=== PATIENT | male | born 1960 | race Caucasian/White ===

== ENCOUNTER 2017-01-24 01:41 | Day surgery (SDC) | payer OTHER ==
[~2017-01-24] VITALS: Ht 177.8 cm; Wt 116.6 kg
[~2017-01-24 01:41] MED LIST: ALBU8.5H IH; ASCO-182 PO; ASPI-1471 PO; ATOR40TA69 PO; CHLOR25 PO; CHOL100062 PO; DOXA4TAB58 PO; FENO145T PO; LEVO50TA86 PO; MULT-1335 PO; PEN400 PO; RANI-324 PO; SODI650T7 PO; TRAM-420 PO
[2017-01-24 11:45] VITALS: BP 144/73
[2017-01-24] MEDS ORDERED: LIDOCAINE/SOD BICARB 8.4% SYR ID ONE (12:25)
[2017-01-24] MEDS ORDERED: DEXAMETHASONE SOD 4 MG/ML VIAL ONE (12:25)
[2017-01-24] MEDS ORDERED: SUGAMMADEX SOD 200 MG/2 ML SDV ONE (12:25)
[2017-01-24] MEDS ORDERED: ceFAZolin(*) 1 GM VIAL 3 GM in NS(*) 0.9% 100 ML BAG 100 ML IVPB ONE (12:25)
[2017-01-24] MEDS ORDERED: NORMOSOL R SOLN(*) 1000 ML BAG 1,000 ML IV PRN (12:25)
[2017-01-24] MEDS ORDERED: LIDOCAINE MPF 1% 5 ML VIAL ONE (12:25)
[2017-01-24] MEDS ORDERED: ROCURONIUM BROM 10 MG/ML 10 ML ONE (12:25)
[2017-01-24] MEDS ORDERED: PROPOFOL EMUL(*) 10MG/ML 20 ML 20 ML ONE (12:25)
[2017-01-24] MEDS ORDERED: MIDAZOLAM 2 MG/2 ML VIAL IVP PRN (12:25)
[2017-01-24] MEDS ORDERED: ONDANSETRON 4 MG/2 ML VIAL ONE (12:25)
[2017-01-24] MEDS ORDERED: fentaNYL CITR 250 MCG/5 ML AMP ONE (12:26)
[2017-01-24] MEDS ORDERED: BUPIVACAIN 0.25% INJ 50ML VIAL ONE (12:59)
[2017-01-24] MEDS ORDERED: DESFLURANE 240 ML BTL INH ONE (17:32)
[2017-01-24] MEDS ORDERED: fentaNYL CITR 100 MCG/2 ML AMP ONE ×2 (18:18→18:40)
--- NOTE | 2017-01-24 18:35 | RADIOLOGY IMAGING REPORT ---
[place] [facility] [place] NAME: Antony Jimenez : 1960 MR: [id number] V: [id number] EXAM DATE: ORDERING PHYSICIAN: CECY BOBO TECHNOLOGIST: Location: [facility] Patient: Antony Jimenez : 1960 Visit/Account:[id number] Date of Sevice: 01/24/2017 LUMBAR SPINE 1 VIEW INDICATION: L4-5 disc herniation. COMPARISON: None available FINDINGS: Crosstable lateral view the lumbar spine. Postsurgical changes at L5-S1 with by pedicular screws and posterior rods in place without sequelae. The posterior soft tissues of the back to show [address] The superior needle is at the L3-4 disc space. The inferior needle is at the mid L4 level. No other radiopaque foreign body. Lumbar spine is aligned with degenerative changes and no acute abnormality. IMPRESSION: Percutaneous needles are in place as above. Report Dictated By: Quinton Tinoco at 01/24/2017 6:30 PM Report E-Signed By: Quinton Tinoco at 01/24/2017 6:31 PM WSN:[id number]
[2017-01-24] MEDS ORDERED: KETOROLAC 30 MG/ML VIAL ONE (18:45)
[2017-01-24] MEDS ORDERED: DOCU240C84 PO (19:11)
[2017-01-24] MEDS ORDERED: OXYC-865 PO (19:11)
[2017-01-24] MEDS ORDERED: DIA5 PO (19:12)
--- NOTE | 2017-02-08 15:07 | OPERATIVE REPORT 1 ---
EVENT DATE: January 24, 2017 SURGEON: Erich Oneill MD [employer] TEACHER: SUHAIL Garcia ANESTHESIOLOGIST: Bryan Casanova MD ANESTHESIA: General endotracheal anesthesia. PREOPERATIVE DIAGNOSES 1. Right L5 and S1 radiculopathy. 2. Right-sided L4-L5 lateral recess stenosis. POSTOPERATIVE DIAGNOSES 1. Right L5 and S1 radiculopathy. 2. Right-sided L4-L5 lateral recess stenosis. PROCEDURE PERFORMED Right L4-L5 hemilaminectomy. INTRAVENOUS FLUIDS 700 mL ESTIMATED BLOOD LOSS 40 mL IMPLANTS None. SPECIMENS None. DRAINS None. COMPLICATIONS None. DISPOSITION Post-anesthesia care unit. INDICATIONS FOR SURGERY The patient is a 56-year-old male who presented to our clinic with a history of ongoing radiating right lower extremity pain, numbness, and tingling in an L5 distribution. He had had some epidural steroid injections that gave him transient relief of symptoms. His imaging studies showed lateral recess stenosis of the L4-L5 level. Secondary to a good response to transforaminal epidural steroid injections at that level and no real lasting improvement with any nonsurgical care, the patient was offered and elected to undergo right- sided L4-L5 hemilaminectomy and foraminotomy. CONSENT Prior to surgery, I discussed with the patient the possible risks of and pertaining to spine surgery including the risk of nerve injury, persistent and/ or worsening pain, spinal fluid leak, infection or meningitis, excessive bleeding, paralysis, , blindness, sexual dysfunction, retrograde ejaculation, blood vessel injury, injury to neighboring organs, need for further surgery, bowel and bladder dysfunction, instability, and autonomic nervous system dysfunction, as well as unforeseen medical and surgical complications. An understanding that in general spinal surgery is more predictive in improving extremity discomfort than axial spine pain and arresting the progression of spinal cord dysfunction rather than improving it was stressed. Due to the revision nature of the procedure, the patient understands that all pertinent complications are increased due to the difficulties with soft tissue manipulation and surgical dissection. This includes, but is not limited to the risk of increased infection, dural tear, neural injury, vessel injury, bowel and bladder dysfunction, as well as sexual dysfunction. DESCRIPTION OF PROCEDURE On the day of surgery, the patient was met in the preoperative hold area, and all questions were answered. The operative site was identified and marked by myself. The patient was then taken to the operating room, and after identification of the patient and the operative site, administration of antibiotics, and completion of anesthesia, the patient was prepped and draped in the prone position on a Sina table. During this time and the entire operation, care was taken to maintain appropriate perfusion pressures during anesthesia. All bony protuberances and soft tissues were well padded in the standard fashion. Preoperative prophylactic antibiotics were administered according to the appropriate timing schedule. At the conclusion of the procedure, the sponge and needle counts were correct times two. A final timeout was undertaken by members of the operating team to confirm correct patient, correct level, and correct surgery. An incision was then made in the skin over the intended surgical level, and dissection was carried down through the subcutaneous tissue to the level of the deep fascia. The deep fascia was elevated off the posterior elements in a subperiosteal manner. An intraoperative radiograph was taken to confirm the appropriate spinal level. After the appropriate spinal level was confirmed, a curette was used to remove in a subperiosteal manner the attachment of the ligamentum flavum from the undersurface of the superior lamina of L5. The ligamentum flavum was then dissected free of its attachments to the pars interarticularis, the medial articular facet, and the inferior lamina. A hemilaminectomy of the L4 lamina was performed using a 3 mm Kerrison punch to fully expose the lateral recess on the right side at L4-L5. After obtaining meticulous hemostasis, the shoulder of the traversing nerve root was mobilized, and a lateral recess decompression was performed using 3-0 and 4-0 Kerrison rongeurs. Once I was confident that the lateral recess was thoroughly decompressed, I utilized a Ashley elevator to feel out into the foramen and ensure that the foramen was wide open. The Ashley elevator was also used to sweep anterior to the dura and the traversing nerve root to ensure the nerve root was freely mobile. Once I was satisfied that the L5 nerve root had been completely decompressed and that the L4 foramen was open as well, we irrigated the wound with copious sterile saline solution. The wound was then closed in layers using interrupted sutures for the deep fascia, inverted interrupted sutures for the subcutaneous tissue, and then a running subcuticular skin stitch. Sponge and instrument counts were correct times two. POSTOPERATIVE CARE PLAN The patient will remain in house until he meets discharge criteria including voiding spontaneously, tolerating p.o. intake, and good pain control with oral pain medications, as well as ability to ambulate on his own. He will follow up in clinic in two weeks' time for examination. CHARITY
== END 2017-01-24 19:35 | disposition home or self-care (01) ==
LOC: OR 01:41
PROVIDERS: ATTEND Orthopaedic Surgery
DX: M48.061 Spinal stenosis, lumbar region without neurogenic claudication (principal); M54.17 Radiculopathy, lumbosacral region
CPT/HCPCS: 36415; 63030; 72020; 84132; J0690; J1100; J1885; J2001; J2405; J2704; J3010; J3490; J7050